=== PATIENT | male | born 1945 | race Caucasian/White ===

== ENCOUNTER 2018-12-07 18:02 | Emergency (ER) | payer MEDICARE, OTHER, SELFPAY ==
[2018-12-07 18:05] VITALS: BP 186/92; PULSE 88; RESP 16; TEMP 36.9; O2SAT 97
--- NOTE | 2018-12-07 18:15 | ED.GENADUL_ITS ---
Discharge Plan Disposition Patient Disposition: HOME Condition: Good Discharge Details Chief Complaint: RashLesion Clinical Impression: Tick bite Primary Care Provider: Edi Gutierrez ED Provider: Shekhar Flores Home Meds and New Rx's Prescriptions: No Action omeprazole 20 mg Capsule,Delayed Release(Dr/Ec) PO DAILY RF: 0 Discharge Instructions Instructions: Tick Bite (ED) Additional Instructions: You have been given the prophylactic dose for Lyme disease. If you notice any change in your rash, worsening of your rash, systemic symptoms of worsening aches or pains, fever chills headache and neck pain please return immediately. If you notice any worsening of your symptoms, or any new symptoms such as vomiting, diarrhea, fever, chills, shortness of breath, chest pain, numbness, weakness, or fainting , please return immediately to the emergency department for reevaluation. Please follow up with your primary care provider as soon as possible for reassessment and reevaluation. As always, it was a pleasure participating in your medical care today. Medical Decision Making This is a pleasant 73-year-old male who presents for evaluation of a tick bite on his left buttock. It occurred earlier today. He was able to remove it without any difficulty or problems. Local skin exam demonstrates evidence of a small amount of reaction, no clinical evidence of erythema migrans. No systemic symptoms to suggest Lyme. The tick is not engorged. On exam the tick is clearly an [place] dog tick. We discussed the risks and benefits of Lyme prophylaxis, and the patient is requesting treatment at this time. We will give 200 mg of doxycycline. Recommend close follow-up. I have extensively reviewed the treatment plan and discharge instructions with the patient. I have addressed all patient concerns at this time. The patient was made aware of what symptoms to monitor for that would warrant a return to the emergency department. Discussed the plan with the patient, they demonstrate verbal understanding and agreement with our assessment and plan at this time. HPI General Date/Time Provider Initiated Documentation: 12/07/18 18:06 . HPI Narrative: This is a pleasant 73-year-old male with no past medical history who presents for evaluation of tick bite. Earlier today he was bit on the left buttock by a tick. He was able to remove the tick including the head. The tick is still alive. He did notice a very tiny amount of redness around the initial bite, presented for further evaluation. He denies any red flags of fever chills arthralgias headache or neck pain. No other modifying Related Data Home Medications Medication Instructions Recorded Confirmed omeprazole mg PO DAILY 12/07/18 Allergies Allergy/AdvReac Type Severity Reaction Status Date / Time Pxdjnxj-Ycm-Iox Reductase AdvReac Mild altered Unverified 12/07/18 18:15 Inhibitor labs Penicillins AdvReac Unknown as an Unverified 12/07/18 18:14 infant General Stated Complaint: RashLesion ROBEL: 4 Review of Systems Review of Systems All systems reviewed & are unremarkable except as noted in HPI and below PFSH Social History Smoking/Tobacco Use Status: Former Tobacco Use Alcohol Intake: current Alcohol Intake frequency: a few times a month Drug use: Never Substance use type: does not use Do you feel safe at home: Yes Do you feel safe in your relationship?: Yes Exam Narrative Exam Narrative: 1.Const: Well-nourished, Well-developed, appearing stated age 2.Eyes: PERRL, no conjunctival injection, and symmetrical lids. 3.ENT: Atraumatic external nose and ears. Moist MM. Neck: Symmetric, trachea midline, No thyromegaly. 4.CVS: +S1/S2, No murmurs or gallops. Peripheral pulses 2+ and equal in all extremities. Brisk capillary refill in all extremities. 5.RESP: Unlabored respiratory effort. Clear to auscultation bilaterally. No wheezes rales or rhonchi 6.GI: Soft, Nontender/Nondistended, No hepatosplenomegaly. No guarding or rebound. 7.MSK: Normocephalic/Atraumatic, Extremities w/o deformity or ttp No cyanosis or clubbing, Normal movement of all extremities 8.Skin: Warm, Dry. Small amount of erythema on the posterior left buttocks, less than 1 cm in diameter. No evidence of erythema migrans. Does appear to be a local reaction to the bite. 9.Neuro: appliance assembler II-XII grossly intact. Sensation grossly intact, no focal neurologic deficits. 10.Psych: (AAO) x3. Appropriate mood and affect Course Vital Signs Temperature 36.9 C 12/07/18 18:05 Pulse 88 12/07/18 18:05 Respiratory Rate 16 12/07/18 18:05 Blood Pressure 186/92 H 12/07/18 18:05 Pulse Oximetry 97 12/07/18 18:05 Temperature 36.9 C 12/07/18 18:05 Temperature Source Skin 12/07/18 18:05 Pulse 88 12/07/18 18:05 Respiratory Rate 16 12/07/18 18:05 Blood Pressure 186/92 H 12/07/18 18:05 Blood Pressure Position Sitting 12/07/18 18:05 Pulse Oximetry 97 12/07/18 18:05 Oxygen Delivery Method Room Air 12/07/18 18:05 Oxygen Flow Rate 0 12/07/18 18:05
[2018-12-07] MEDS: Doxycycline Hyclate 100 MG CAP 200 MG PO (18:17)
== END 2018-12-07 18:33 | disposition home or self-care (01) ==
PROVIDERS: Emergency Provider Student in an Organized Health Care Education/Training Program
DX: S30.860A Insect bite (nonvenomous) of lower back and pelvis, initial encounter (principal); W57.XXXA Bitten or stung by nonvenomous insect and other nonvenomous arthropods, initial encounter
CPT/HCPCS: 99283

== ENCOUNTER 2019-03-09 15:58 | Emergency (ER) | payer MEDICARE, OTHER, SELFPAY ==
[2019-03-09] VITALS (50 sets, daily range): BP systolic 125–158; BP diastolic 59–97; PULSE 67–93; RESP 10–23; TEMP 36.4; O2SAT 83–99
--- NOTE | 2019-03-09 16:20 | DI.RAD_ITS ---
SYMPTOM/DIAGNOSIS: SOB PA AND LATERAL CHEST: The lungs are well expanded and free of infiltrate. There is no evidence of a pleural effusion or pneumothorax. The cardiac and mediastinal structures are intact. There are degenerative changes involving the spine. IMPRESSION: No evidence of acute cardiopulmonary disease.
--- NOTE | 2019-03-09 16:22 | W.ED.GENAD ---
Discharge Plan Disposition Patient Disposition: HOME Condition: Improving Discharge Details Chief Complaint: Chest Pain Clinical Impression: Acute dehydration Primary Care Provider: BrendaLocal ED Provider: Apolinar Grier Home Meds and New Rx's Prescriptions: No Action omeprazole 20 mg Capsule,Delayed Release(Dr/Ec) 20 mg PO DAILY RF: 0 Discharge Instructions Instructions: Dehydration (ED) Additional Instructions: Please continue to take your normally prescribed medications, stay well-hydrated, and rest over the next couple days. Return immediately to the emergency department for any new or worsening symptoms, return of chest discomfort, or any further concerns you have. Otherwise follow-up with your primary care provider for reassessment and further testing as needed. Referrals: Primary Care Provider [Outside] - 3 days (Please call your primary care office on Tuesday for arrangement of reassessment and further testing as needed) Medical Decision Making Patient presenting to the emergency department chief complaint of malaise chest pain and tightness. He states that he had been working outside all day long, not eating or drinking well, and his had showed up and he was going to show her the work he had been doing. They had smoked a small amount of marijuana when they got on the [address] to right around the property and he started having symptoms. called EMS due to patient looking clammy and ill. Patient was given IV fluids by EMS. Patient now states that chest pain and tightness has resolved but he still feels generalized malaise. Patient feels that he feels like he just got very high on the marijuana that caused him to feel ill. Patient does have history of GERD, hypertension, hyperlipidemia, and borderline diabetes. Patient is unaware of his meds except for daily omeprazole. Physical exam is unremarkable, plan to do EKG labs and chest x-ray. Review of labs show a nondiagnostic CBC, CMP with slightly low potassium, elevated anion gap, elevated BUN, glucose is appropriate and slightly low calcium. Urinalysis is unremarkable and negative initial troponin. Plan to give oral potassium. Second troponin was reviewed and also negative. Patient reassessed and states complete resolution of symptoms and that he feels significantly better after the 2 L of IV fluids. Patient does have moderate heart score so did discuss with patient consideration of admission. Patient refused admission at this time and states he will call his primary care office early next week or return for worsening symptoms. I do feel given that patient had been doing a lot of work, has some elevated BUN creatinine and anion gap, that symptoms may be secondary to some dehydration and contributing factor of marijuana usage. Very close return precautions were discussed with both patient and family. After discussion of diagnosis and plan of care patient and have no further needs, questions, or concerns and states clear understanding to return to the emergency department for any worsening symptoms. ECG Data Interpretation: 1605 EKG reviewed with attending physician Dr. Vandana Lance and shows sinus rhythm, rate of 78, mild ST depression in 2 3 and aVF, slight T wave inversion noted in lead III no STEMI, 1950 EKG reviewed with attending physician Dr. Flores. Shows sinus rhythm, rate of 73, there is subtle T wave inversion noted in lead III, no STEMI. HPI General Mode of arrival: EMS. Date/Time Provider Initiated Documentation: 03/09/19 15:59. Limitations to Documentation: no limitations. Information obtained by: patient, family and RN notes reviewed. History of Present Illness 73 year old M presents to the emergency department with the chief complaint of Chest pain/tightness, malaise, Quality is described as other (Pain now resolved), and is localized to the chest. Patient started experiencing this hour(s) (1) and it has been now resolved (Except for malaise). Patient notes no other symptoms.. Patient did receive the following treatments prior to arrival, none Related Data Home Medications Medication Instructions Recorded Confirmed omeprazole 20 mg PO DAILY 12/07/18 03/09/19 Allergies Allergy/AdvReac Type Severity Reaction Status Date / Time [id number] Reductase AdvReac Mild altered Unverified 03/09/19 16:04 Inhibitor labs Penicillins AdvReac Unknown as an Unverified 03/09/19 16:04 infant General Stated Complaint: Chest Pain ROBEL: 2 Review of Systems Constitutional Constitutional: Denies chills, Denies fever(s) and Denies malaise Cardiovascular Cardiovascular: Reports as per HPI, Reports chest pain, Denies chest pain with activity, Denies syncope, Denies irregular heart rhythm, Denies palpitations and Denies dyspnea Respiratory Respiratory: Denies cough, Denies hemoptysis and Denies dyspnea Gastrointestinal Gastrointestinal: Denies abdominal pain, Denies nausea and Denies vomiting Neurologic Neurologic: Denies syncope Endocrine Endocrine: Denies palpitations [facility] Medical History (Updated 03/09/19 @ 20:36 by Apolinar Grier NP) GERD (gastroesophageal reflux disease) (Chronic) Hyperlipidemia (Acute) Social History Smoking/Tobacco Use Status: Current-Occasional Tobacco Type: cigars Alcohol Intake: current Alcohol Intake frequency: a few times a month Drug use: Occasionally Substance use type: marijuana Do you feel safe at home: Yes Do you feel safe in your relationship?: Yes Exam Const General: cooperative, healthy appearing, comfortable, no acute distress, not diaphoretic and not ill appearing Nutritional Appearance: average body habitus Orientation: alert, awake and oriented x3 Limitations: mental status not altered Neck Neck: normal visual inspection, full ROM, trachea midline, supple and no anterior neck swelling Thyroid: thyroid normal Carotids: normal carotid upstroke and no bruits Chest Chest: normal inspection of the chest Resp Effort & Inspection: normal respiratory effort and able to speak in complete sentences Auscultation: clear to auscultation bilaterally Cardio Jugular venous pressure: no JVD Palpation: normal PMI Rate: regular rate Rhythm: regular rhythm Heart Sounds: S1 normal, S2 normal, no click, no gallops, no murmurs and no rubs Bruits: no abdominal aortic bruits and no carotid bruits Pulses: radial pulses present bilaterally 2+ GI Inspection: normal to inspection Palpation: soft, no aortic enlargement, no pulsatile masses and nontender Auscultation: normal bowel sounds Skin General skin exam: no rashes or lesions noted Neuro General: alert, awake, oriented x3, tone normal and moves all extremities Course Vital Signs Vital signs: Vital Signs Temperature 36.4 C L 03/09/19 15:58 Pulse 84 03/09/19 15:58 Respiratory Rate 12 03/09/19 15:58 Blood Pressure 144/97 H 03/09/19 15:58 Pulse Oximetry 96 03/09/19 15:58 Temperature 36.4 C L 03/09/19 15:58 Temperature Source Skin 03/09/19 15:58 Pulse 84 03/09/19 15:58 Respiratory Rate 12 03/09/19 15:58 Respiratory Effort Non-Labored 03/09/19 16:04 Respiratory Depth Normal 03/09/19 16:04 Respiratory Pattern Normal 03/09/19 16:04 Blood Pressure 144/97 H 03/09/19 15:58 Pulse Oximetry 96 03/09/19 15:58 Oxygen Delivery Method Room Air 03/09/19 15:58 Oxygen Flow Rate 0 03/09/19 15:58 Pain Level 1 03/09/19 16:04
[2019-03-09 16:44] LABS: Abs Immature Grans 0.02 k/cumm (0.0-0.09); Absolute Basophil Count 0.02 k/cumm (0.0-0.2); Absolute Eosinophil Count 0.12 k/cumm (0.0-0.7); Absolute Lymphocyte Count 3.81 k/cumm (1.2-3.4); Absolute Monocyte Count 0.74 k/cumm (0.11-0.7); Absolute Neutrophil Count 4.32 k/cumm (1.2-6.7); Basophils % 0.2; Eosinophils % 1.3; HGB 15.6 g/dL (13.5-17.5); Immature Grans % 0.2; Lymphocytes % 42.2; Mean Corp. HGB Concentration 33.2 g/dL (32.0-36.0); Mean Corpuscular Hemoglobin 29.9 pg (27.0-33.0); Mean Platelet Volume 10.4 fL (8.0-11.0); Monocytes % 8.2; Neutrophils % 47.9; Platelet Count 243 x1000/uL (130-400); RBC 5.22 m/cumm (4.50-6.00); RBC Distribution Width 14.6 % (11.8-14.1); White Blood Cell Count 9.03 k/cumm (4.4-10.8)
[2019-03-09 16:57] LABS: INR 1.1 (0.9-1.1); PTT Activated 22.5 sec (21.0-31.4); Prothrombin Time 10.9 sec (9.3-11.0)
[2019-03-09 16:59] LABS: ALT 40 U/L (16-63); AST 24 U/L (15-37); Albumin 3.5 g/dL (3.4-5.0); Alkaline Phosphatase 57 U/L (46-116); Anion Gap 12.2 mmol/L (3-11); BUN 19 mg/dL (7-18); Bilirubin, Total 0.4 mg/dL (0.2-1.0); CO2 24.8 mmol/L (21.0-32.0); CREATININE 1.26 mg/dL (0.70-1.30); Calcium 8.1 mg/dL (8.5-10.1); Chloride 107 mmol/L (98-107); Estimated GFR 56.26 (mL/min/1.73m2); Glucose 160 mg/dL (70-100); Potassium 3.3 mmol/L (3.5-5.1); Sodium 144 mmol/L (136-145); Total Protein 6.5 g/dL (6.4-8.2)
[2019-03-09 17:00] LABS: Troponin I < 0.05 ng/mL (0.00-0.06)
--- NOTE | 2019-03-09 17:00 | NUR.NOTE ---
Nursing Note:Pt resting in stretcher,no signs of distress pt states that he feels, much better. denies pain. VSS
[2019-03-09 17:02] LABS: Bilirubin Negative (Negative); Blood Negative (Negative); Clarity Clear (Clear); Glucose Negative (Negative); Ketones Negative (Negative); Leukocyte Esterase Negative (Negative); Nitrite Negative (Negative); Urobilinogen 0.2 EU/dL (Up TO 0.2)
[2019-03-09] MEDS: Normal Saline 1,000 ML 1000 ML IV (17:23)
[2019-03-09] MEDS: Potassium Chloride 20 MEQ TABCR PO (17:23)
--- NOTE | 2019-03-09 17:29 | DI.VRAD_ITS ---
EXAM: XR Chest, 2 Views EXAM DATE/TIME: 03/09/2019 4:22 PM CLINICAL HISTORY: 73 years old, male; Shortness of breath TECHNIQUE: Imaging protocol: XR of the chest Views: 2 views. COMPARISON: No relevant prior studies available. FINDINGS: Lungs: Unremarkable. No consolidation. Pleural space: Unremarkable. No pleural effusion. No pneumothorax. Heart/Mediastinum: Unremarkable. No cardiomegaly. Bones/joints: Degenerative changes in the spine. IMPRESSION: No acute finding. Dictated and Authenticated by: Nataliya Costa MD. Ordering:MERA Jiang MD
[2019-03-09 20:16] LABS: Troponin I < 0.05 ng/mL (0.00-0.06)
--- NOTE | 2019-03-09 20:51 | NUR.NOTE ---
Nursing Note: pt alert/oriented/ambulatory. discharged to home with spouse. instructions reviewed, emphasis on the importance of proper hydration and follow up care. understanding verbalized. VSS IV REMOVED.
== END 2019-03-09 20:55 | disposition home or self-care (01) ==
PROVIDERS: Emergency Provider Nurse Practitioner Family
DX: E86.0 Dehydration (principal); R53.81 Other malaise; R07.89 Other chest pain; I10 Essential (primary) hypertension; E87.6 Hypokalemia; F12.90 Cannabis use, unspecified, uncomplicated
CPT/HCPCS: 36415; 80053; 93005; 96360; 99285; 71046; 81003; 83735; 84484; 85025; 85610; 85730; 93010; 99284

== ENCOUNTER 2019-03-15 11:56 | Emergency (ER) | payer MEDICARE, OTHER, SELFPAY ==
[2019-03-15 12:00] VITALS: BP 166/91; PULSE 94; RESP 16; TEMP 36.7; O2SAT 99
--- NOTE | 2019-03-15 12:25 | ED.GENADUL_ITS ---
Discharge Plan Disposition Patient Disposition: HOME Condition: Improving Discharge Details Chief Complaint: Dizzy/Sync Clinical Impression: GERD (gastroesophageal reflux disease), Hyperlipidemia, Lightheaded Primary Care Provider: Brenda,Local ED Provider: Brett Khan Home Meds and New Rx's Prescriptions: Continued omeprazole 20 mg Capsule,Delayed Release(Dr/Ec) 20 mg PO DAILY RF: 0 Discharge Instructions Additional Instructions: Continue regular medications including omeprazole. Follow-up with your regular doctor on Tuesday as planned. Return if develop chest pain, difficulty breathing, recurrent lightheadedness or any other acute concerns. Medical Decision Making 73-year-old male presents from home complaining of recurrent sensation of lightheadedness and fogginess, similar to recent ED visit which she had negative cardiac troponins, received parenteral fluids and was diagnosed with dehydration. States today he had recurrent symptoms while raking in his yard, and seems to improve with rest. Initially patient notes his blood pressure 166/91, corrected to 138/80. Also initially had a pulse in the 90s, corrected to 65. Vital signs otherwise unremarkable. Patient IV access established, referred for EKG and laboratory testing, given small bolus of fluid. CBC and chemistries are within normal limits. Urine specific gravity 1.0. Troponin negative. Repeat troponin obtained and negative. Patient improved. Discussed with him that I feel outpatient stress testing will help to complete his risk stratification, but he stated that as this is is a seasonal residence and he has pre-standing follow-up on Tuesday at home in [place] that he will defer to his home primary care physician. We discussed home management as well as strict return precautions for the development of chest pain, develop breathing or any other acute concern. ECG Data Attestation: I personally reviewed and interpreted this ECG (s) as follows: Interpretation: Normal sinus rhythm with a rate of 94, QRS is narrow, there is no ST segment elevation present. HPI General Mode of arrival: ambulatory . Date/Time Provider Initiated Documentation: 03/15/19 12:07 . Limitations to Documentation: no limitations . Information obtained by: patient . History of Present Illness 73 year old M presents to the emergency department with the chief complaint of [employer] foggy and mild lightheadedness while doing yard work today, described as similar to prior episodes, Quality is described as dull, and is localized to the head. Patient started experiencing this hour(s) and it has been now resolved. No relieving factors improve symptom(s), Other factors that worsen symptoms (Doing yard work) . Patient notes denies chest pain and syncope. Patient did receive the following treatments prior to arrival, none Related Data Home Medications Medication Instructions Recorded Confirmed omeprazole 20 mg PO DAILY 12/07/18 03/15/19 Allergies Allergy/AdvReac Type Severity Reaction Status Date / Time Pzoghri-Nkk-Ssv Reductase AdvReac Mild altered Unverified 03/15/19 12:04 Inhibitor labs Penicillins AdvReac Unknown as an Unverified 03/15/19 12:04 General Stated Complaint: Dizzy/Sync ROBEL: 3 Review of Systems Review of Systems Narrative: No chest pain, syncope, headache, shortness of breath. Patient now feels improved. 8 systems reviewed and otherwise negative [facility] Medical History GERD (gastroesophageal reflux disease) (Chronic) Hyperlipidemia (Acute) Social History Smoking/Tobacco Use Status: Current-Occasional Tobacco Type: cigars Alcohol Intake: current Alcohol Intake frequency: a few times a month Drug use: Occasionally Substance use type: marijuana Do you feel safe at home: Yes Do you feel safe in your relationship?: Yes Exam Narrative Exam Narrative: GEN: awake, alert, oriented 3. Pleasant, well groomed, interactive. HEAD: Normocephalic, atraumatic ENT: Mucous membranes moist, oropharynx unremarkable, External ear exam unremarkable EYES: PERRL, EOMI NECK: Full ROM, no PILLO, no menigismus CHEST/RESP: Nontender, clear to auscultation bilateral, no wheeze/rhonchi/rales CARDIOVASCULAR: RRR, no murmur, rub moncho. 2+ Rad pulse bilateral ABDOMEN: Soft, nontender, no mass. +Bowel sounds EXT: Full ROM, no edema, no rash Neuro: Grossly normal neurologic exam, conversant, interactive. Psych: Speech fluent, thoughts congruent, affect normal Course Vital Signs Vital signs: Vital Signs Temperature 36.7 C 03/15/19 12:00 Pulse 94 H 03/15/19 12:00 Respiratory Rate 16 03/15/19 12:00 Blood Pressure 166/91 H 03/15/19 12:00 Pulse Oximetry 99 03/15/19 12:00 Temperature 36.7 C 03/15/19 12:00 Temperature Source Skin 03/15/19 12:00 Pulse 94 H 03/15/19 12:00 Respiratory Rate 16 03/15/19 12:00 Blood Pressure 166/91 H 03/15/19 12:00 Pulse Oximetry 99 03/15/19 12:00 Oxygen Delivery Method Room Air 03/15/19 12:00 Oxygen Flow Rate 0 03/15/19 12:00 Pain Level 1 03/15/19 12:00
[2019-03-15 12:27] LABS: Bilirubin Negative (Negative); Blood Negative (Negative); Clarity Clear (Clear); Glucose Negative (Negative); Ketones Negative (Negative); Leukocyte Esterase Negative (Negative); Nitrite Negative (Negative); Specific Gravity <= 1.005 (1.005-1.025); Urobilinogen 0.2 EU/dL (Up TO 0.2)
[2019-03-15] MEDS: Normal Saline 1,000 ML 1000 ML IV (12:35)
[2019-03-15 12:39] VITALS: RESP 16
[2019-03-15 12:56] LABS: Abs Immature Grans 0.02 k/cumm (0.0-0.09); Absolute Basophil Count 0.02 k/cumm (0.0-0.2); Absolute Eosinophil Count 0.09 k/cumm (0.0-0.7); Absolute Lymphocyte Count 1.43 k/cumm (1.2-3.4); Absolute Monocyte Count 0.46 k/cumm (0.11-0.7); Basophils % 0.3; Eosinophils % 1.6; HCT 48.9 % (40.0-50.0); HGB 16.3 g/dL (13.5-17.5); Immature Grans % 0.3; Mean Corp. HGB Concentration 33.3 g/dL (32.0-36.0); Mean Corpuscular Hemoglobin 29.5 pg (27.0-33.0); Mean Corpuscular Volume 88.6 fL (80-95); Mean Platelet Volume 9.9 fL (8.0-11.0); Neutrophils % 64.8; Platelet Count 228 x1000/uL (130-400); RBC 5.52 m/cumm (4.50-6.00); RBC Distribution Width 14.3 % (11.8-14.1); White Blood Cell Count 5.72 k/cumm (4.4-10.8)
[2019-03-15 13:11] LABS: ALT 33 U/L (16-63); AST 18 U/L (15-37); Albumin 3.5 g/dL (3.4-5.0); Alkaline Phosphatase 69 U/L (46-116); Anion Gap 8.8 mmol/L (3-11); BUN 16 mg/dL (7-18); Bilirubin, Total 0.3 mg/dL (0.2-1.0); CO2 26.2 mmol/L (21.0-32.0); CREATININE 1.01 mg/dL (0.70-1.30); Calcium 8.9 mg/dL (8.5-10.1); Chloride 107 mmol/L (98-107); Glucose 107 mg/dL (70-100); Magnesium 2.1 mg/dL (1.8-2.4); Potassium 4.4 mmol/L (3.5-5.1); Sodium 142 mmol/L (136-145); Total Protein 6.8 g/dL (6.4-8.2)
[2019-03-15 13:24] LABS: Troponin I < 0.05 ng/mL (0.00-0.06)
[2019-03-15 14:50] VITALS: BP 138/80; PULSE 65; RESP 14; TEMP 36.7; O2SAT 96
[2019-03-15 16:16] LABS: Troponin I < 0.05 ng/mL (0.00-0.06)
[2019-03-15 16:35] VITALS: BP 143/96; PULSE 73; RESP 16; TEMP 37; O2SAT 96
== END 2019-03-15 16:37 | disposition home or self-care (01) ==
PROVIDERS: Emergency Provider Emergency Medicine
DX: K21.9 Gastro-esophageal reflux disease without esophagitis (principal); E78.5 Hyperlipidemia, unspecified; R42 Dizziness and giddiness
CPT/HCPCS: 36415; 80053; 93005; 96360; 96361; 99284; 81003; 83735; 84484; 85025; 93010

== ENCOUNTER 2020-11-21 14:44 | Emergency (ER) | payer MEDICARE, OTHER, SELFPAY ==
[2020-11-21 14:46] VITALS: BP 154/76; PULSE 77; RESP 18; TEMP 36.8; O2SAT 100
--- NOTE | 2020-11-21 15:00 | DI.RAD_ITS ---
Exam(s) XR FOREARM LT EXAM: XR FOREARM LT CLINICAL HISTORY: Trauma, R/O Fracture TECHNIQUE: COMPARISON: No exams were available for comparison FINDINGS: Two views were obtained. There is no evidence of acute forearm fracture. IMPRESSION: RADIATION DOSE DELIVERED: Total DLP
--- NOTE | 2020-11-21 15:04 | W.ED.GENAD ---
Discharge Plan Disposition Patient Disposition: HOME Condition: Stable Discharge Details Clinical Impression: Fall down stairs, Laceration of head [facility] Radha Saldana Home Meds and New Rx's Prescriptions: No Action ezetimibe 10 mg Tablet 10 mg PO DAILY RF: 0 omeprazole 20 mg Capsule,Delayed Release(Dr/Ec) 20 mg PO DAILY RF: 0 citalopram 10 mg Tablet 10 mg PO DAILY RF: 0 losartan 25 mg Tablet 25 mg PO DAILY RF: 0 finasteride 5 mg Tablet 5 mg PO DAILY RF: 0 Discharge Instructions Instructions: Laceration (ED), Head Injury (ED), Staple Care (ED) Additional Instructions: Follow up with primary care provider in 3-5 days. Return to ED sooner if any worsening or concerns. Increase oral fluids. Please take Tylenol or Ibuprofen with food every 4-6 hours as needed for pain and swelling. Today you had a head CT and neck CT which showed negative for mass hemorrhage or any acute injury. You are given a tetanus shot. X-rays of your left forearm are within normal limits. Please return to the ED for any worsening headache not relieved by Tylenol or ibuprofen, vomiting, confusion, chest pain abdominal pain or any concerns. Try not to drink alcohol for the next 24 to 48 hours as this can not symptoms of a serious head injury. Have keren removed in 5 to 7 days. Discharge Data Discharge Date/Time-TO BE ENTERED AT DEPARTURE: 11/21/20 17:01 Medical Decision Making 74-year-old male presents to the ER via EMS with chief complaint of fall down the stairs, he lost his balance fell backwards down approximately 13 steps. No loss of consciousness he is alert and oriented x4 upon arrival. He is placed in a c-collar. He has a laceration noted to his left scalp. He does have some skin tears noted to his left forearm right anterior tib-fib. He has full range of motion noted to all 4 extremities, pelvis is stable denies any chest pain no abdominal pain no midline T or L-spine tenderness with palpation no crepitus no step-off. No ecchymosis noted to his back chest or abdomen. He has a past medical history of hyperlipidemia, hypertension, GERD. CT head and C-spine are negative for any acute abnormality no mass no hemorrhage no fractures. Patient is ambulatory in department c-collar removed. Up to the bathroom. Patient refused right tib-fib x-ray. Left forearm x-rays negative. Laceration noted to left parietal scalp proximally 3 cm and jagged in length bleeding is controlled at this point. Wound was extensively irrigated, cleaned with chlorhexidine and sterile normal saline. 2 keren placed as noted in procedure note above. Discuss strict return instructions including red flags for head injury, discussed to return for any abdominal pain chest pain or any concerns. This text was generated using [employer] system, please disregard any oddities of phrase or misspellings. HPI General Mode of arrival: EMS. Date/Time Provider Initiated Documentation: 11/21/20 14:54. Limitations to Documentation: no limitations. Information obtained by: patient and EMS. HPI Narrative: 74-year-old male presents to the ER via EMS with chief complaint of fall down the stairs, he lost his balance fell backwards down approximately 13 steps. No loss of consciousness he is alert and oriented x4 upon arrival. He is placed in a c-collar. He has a laceration noted to his left scalp. He does have some skin tears noted to his left forearm right anterior tib-fib. He has full range of motion noted to all 4 extremities, pelvis is stable denies any chest pain no abdominal pain no midline T or L-spine tenderness with palpation no crepitus no step-off. No ecchymosis noted to his back chest or abdomen. He has a past medical history of hyperlipidemia, hypertension, GERD. Related Data Home Medications Medication Instructions Recorded Confirmed omeprazole 20 mg PO DAILY 12/07/18 11/21/20 ezetimibe 10 mg PO DAILY 03/15/19 11/21/20 citalopram 10 mg PO DAILY 11/21/20 finasteride 5 mg PO DAILY 11/21/20 11/21/20 losartan 25 mg PO DAILY 11/21/20 Allergies Allergy/AdvReac Type Severity Reaction Status Date / Time Rpvpyki-Ofj-Avk Reductase AdvReac Mild altered Unverified 11/21/20 14:50 Inhibitor labs Penicillins AdvReac Unknown as an Unverified 11/21/20 14:50 General Stated Complaint: Trauma ROBEL: 3 Review of Systems Narrative: Constitutional: Negative for weight loss, alert and oriented, well groomed, normal body habitus, appears comfortable. HEENT: Denies blurry vision, nasal discharge, sore throat, trouble swallowing. Chest: Denies chest pain, palpitations, irregular rhythm, hypertension. Respiratory: Denies Shortness of breath, cough, hemoptysis. GI: Denies abdominal pain, nausea, vomiting, diarrhea, constipation. : Denies dysuria, hematuria, flank pain, rectal bleeding. Musculoskeletal: Pelvis is stable no obvious deformity or ecchymosis noted, does have some skin tears noted on forearms and the right anterior tib-fib. Superficial. Moving all 4 extremities. Neuro: Denies dizziness, blurry vision, weakness, syncope, or facial numbness. Hematologic: Denies easy bruising, intolerance to heat or cold, hair loss. [facility] Medical History (Updated 11/21/20 @ 16:53 by Radha Saldana) GERD (gastroesophageal reflux disease) Hyperlipidemia Social History Smoking/Tobacco Use Status: Current-Occasional Tobacco Type: cigars Smoking risk assessment performed?: Yes Alcohol Intake: current Alcohol Intake frequency: a few times a month Drug use: Occasionally Substance use type: marijuana Do you feel safe at home: Yes Do you feel safe in your relationship?: Yes Exam Narrative Exam Narrative: General: Well Developed, Awake and Alert, conversant. Skin: Warm and Dry HEENT: Laceration noted to his left parietal scalp, bleeding controlled with pressure Head: No palpable deformities, Normocephalic Eyes: Pupils PERRLA, EOM's intact. No periorbital eccymosis or step off Ears: Canal patent. Tympanic membranes are clear . No taylor's sign, no hemptympanum. Nose/Face: Atraumatic. Facial bones nontender to palpation and stable with manipulation. Mouth/Throat: No intraoral trauma. Teeth and mandible are intact. Neck: No midline tenderness, no step off, no deformity to palpation of C-spine. Trachea midline. Chest: No surface trauma. Nontender without crepitus or deformity. Lungs clear to ausculatation bilaterally. Heart: RRR, no rubs, murmurs or gallop. Abdomen: No abrasions, ecchymosis, or surface trauma. Nondistended. Nontender to palpation no guarding, rebound, or rigidity. Pelvis: Nontender to palpation and stable to compression. Femoral pulses strong and equal Extremities skin tear noted to left forearm left hand and right anterior tib-fib. Appears superficial. Sensation intact. Peripheral pulses intact and equal. Neuro: ANO x4, GCS 15, cranial nerves II through XII intact. Motor and sensory exam nonfocal. Reflexes are symmetric. Course Vital Signs Vital signs: Vital Signs Temperature 36.8 C 11/21/20 14:46 Pulse 77 11/21/20 14:46 Respiratory Rate 18 11/21/20 14:46 Blood Pressure 154/76 H 11/21/20 14:46 Pulse Oximetry 100 11/21/20 14:46 Temperature 36.8 C 11/21/20 14:46 Temperature Source Skin 11/21/20 14:46 Pulse 77 11/21/20 14:46 Respiratory Rate 18 11/21/20 14:46 Respiratory Effort Non-Labored 11/21/20 14:50 Blood Pressure 154/76 H 11/21/20 14:46 Blood Pressure Position Sitting 11/21/20 14:46 Pulse Oximetry 100 11/21/20 14:46 Oxygen Delivery Method Room Air 11/21/20 14:46 Oxygen Flow Rate 0 11/21/20 14:46 Pain Level 3 11/21/20 14:46 Procedures Laceration Laceration 1: Site: scalp Side (If applicable): left Size (cm): 3 Description: irregular and contaminated Depth: simple, single layer Local Anesthetic: Lidocaine 1% and with Epi Amount of anesthesia used (mL): 3 Pre-repair: wound explored and irrigated extensively Size (cm): other (2 keren)
--- NOTE | 2020-11-21 15:11 | DI.CT_ITS ---
Exam(s) CT HEAD CERVICAL SPINE WO EXAM: CT HEAD CERVICAL SPINE WO COMPARISON: No exams were available for comparison FINDINGS: CT examination of the cervical spine was performed without contrast administration. There are severe degenerative changes of the cervical spine. There is multilevel disc degeneration s paring C2-3. There is incidental posterior ligament calcification seen at the C5-6 level. There is no evidence of acute cervical spine fracture or dislocation. Intervertebral disc spaces are well maintained. Tracheolaryngeal structures appear intact. No cervical mass or adenopathy. Noncontrast cranial CT was performed. There is moderate generalized cerebral atrophy. No evidence of acute intracranial hemorrhage, mass effect, or midline shift. No calvarial fracture. The orbital and temporal bone structures appear intact. Visualized mastoid air cells and paranasal sinuses appear clear. IMPRESSION: No evidence of acute cervical spine injury. No evidence of acute intracranial injury. RADIATION DOSE DELIVERED: Total DLP Total DLP DATA REPOSITORY: All CT scans at this facility are submitted to the National Radiology Data Registry (NRDR) Dose Index Registry (DIR) with the [employer] (ACR). RADIATION OPTIMIZATION: All CT scans at this facility use at least one of these dose optimization te chniques: automated exposure control; mA and/or kV adjustment per patient size (includes targeted exa ms where dose is matched to clinical indication); or iterative reconstruction.
[2020-11-21] MEDS: Lidocaine/Epinephri/Tetracaine Topical Gel 3 ML TP (16:04)
[2020-11-21] MEDS: Tetanus & Diphtheria Tox,ADULT 0.5 ML VIAL IM (16:04)
[2020-11-21 16:35] VITALS: BP 144/72; PULSE 81; RESP 15; TEMP 36.7; O2SAT 98
--- NOTE | 2020-11-21 16:58 | NUR.NOTE ---
Nursing Note: BACITRACIN, GAUZE, AND COBAN TO SKIN TEARS. RIGHT LOWER LEG, LEFT POST ARM,AND LEFT HAND.
== END 2020-11-21 17:01 | disposition home or self-care (01) ==
PROVIDERS: Emergency Provider Registered Nurse Emergency
DX: S01.01XA Laceration without foreign body of scalp, initial encounter (principal); S51.812A Laceration without foreign body of left forearm, initial encounter; S81.811A Laceration without foreign body, right lower leg, initial encounter; W10.8XXA Fall (on) (from) other stairs and steps, initial encounter
CPT/HCPCS: 12002; 90471; 99283; 70450; 72125; 73090; 99282

== ENCOUNTER 2020-11-27 15:56 | Emergency (ER) | payer MEDICARE, OTHER, SELFPAY ==
[2020-11-27 16:06] VITALS: BP 149/74; PULSE 69; RESP 16; TEMP 36.7; O2SAT 96
--- NOTE | 2020-11-27 16:21 | ED.GENADUL_ITS ---
Discharge Plan Disposition Patient Disposition: HOME Condition: Stable Discharge Details Clinical Impression: Encounter for removal of erma Primary Care Provider: [facility] Provider: Alberto Evans Home Meds and New Rx's Prescriptions: New ibuprofen 800 mg tablet 800 mg PO TID PRNQty: 14 RF: 0 Continued ezetimibe 10 mg Tablet 10 mg PO DAILY RF: 0 omeprazole 20 mg Capsule,Delayed Release(Dr/Ec) 20 mg PO DAILY RF: 0 citalopram 10 mg Tablet 10 mg PO DAILY RF: 0 losartan 25 mg Tablet 25 mg PO DAILY RF: 0 finasteride 5 mg Tablet 5 mg PO DAILY RF: 0 Discharge Instructions Additional Instructions: Erma removed without difficulty. I have given you a short prescription of the ibuprofen that you requested. Please watch for new or worsening symptoms and return to the ER for any concerns. Discharge Data Discharge Date/Time-TO BE ENTERED AT DEPARTURE: 11/27/20 16:49 Medical Decision Making Patient presents for staple removal. He denies pain at the site of the sutures, any signs of infection, or any other complaints. Is requesting a refill of his 800 mg ibuprofen. He appears well, nontoxic, neurologically intact, no signs of secondary infection. Erma removed without difficulty. Patient tolerated well Patient has no additional questions or concerns at this time. Medical Records Medical records reviewed: Yes I reviewed the patient's medical records. HPI General Mode of arrival: ambulatory . Date/Time Provider Initiated Documentation: 11/27/20 16:09 . Limitations to Documentation: no limitations . Information obtained by: patient and family . HPI Narrative: This is a 75-year-old gentleman who presents for staple removal. Patient was seen in the ER on 11-21 after a fall down the stairs. Work-up at that time was negative and he was subsequently discharged. He has been taking Motrin for his aches and pains, he had a previous prescription from his dentist and is now out, requesting new prescription now. He denies any headache, visual changes, neck pain. He denies any redness or pain around the stapled laceration on the left side of his scalp. He has no additional questions or concerns. Related Data Home Medications Medication Instructions Recorded Confirmed omeprazole 20 mg PO DAILY 12/07/18 11/21/20 ezetimibe 10 mg PO DAILY 03/15/19 11/21/20 citalopram 10 mg PO DAILY 11/21/20 finasteride 5 mg PO DAILY 11/21/20 11/21/20 losartan 25 mg PO DAILY 11/21/20 ibuprofen 800 mg PO TID PRN #14 tab 11/27/20 Previous Rx's Medication Instructions Recorded ibuprofen 800 mg PO TID PRN #14 tab 11/27/20 Allergies Allergy/AdvReac Type Severity Reaction Status Date / Time Ighvkro-Gfe-Smb Reductase AdvReac Mild altered Unverified 11/21/20 14:50 Inhibitor labs Penicillins AdvReac Unknown as an Unverified 11/21/20 14:50 General Stated Complaint: SutureRem ROBEL: 5 Review of Systems Constitutional Constitutional: Denies fever(s) and Denies headache(s) ENT Ears, Nose, Mouth, and Throat: Denies headache(s) Musculoskeletal Musculoskeletal: Denies numbness and Denies tingling Integumentary/Breasts Skin/Breast: Denies erythema and Denies rash Neurologic Neurologic: Denies headache(s) and Denies numbness PFSH Medical History GERD (gastroesophageal reflux disease) Hyperlipidemia Social History Smoking/Tobacco Use Status: Current-Occasional Tobacco Type: cigars Smoking risk assessment performed?: Yes Alcohol Intake: current Alcohol Intake frequency: a few times a month Drug use: Occasionally Substance use type: marijuana Do you feel safe at home: Yes Do you feel safe in your relationship?: Yes Exam Const General: cooperative, healthy appearing, comfortable and no acute distress Orientation: alert, awake and oriented x3 [facility] Head: no palpable skull fracture, normocephalic and atraumatic Head images: 1. Well approximated laceration with 2 sutures. No warmth, erythema, drainage, tenderness. No signs of infection. Face and sinus: normal facial exam Mouth: moist mucous membranes Eyes General: appearance normal, both eyes and all related structures Conjunctivae: conjunctivae normal Neck Neck: normal visual inspection, full ROM, trachea midline and supple Resp Effort & Inspection: normal respiratory effort and able to speak in complete sentences Cardio Rate: regular rate Rhythm: regular rhythm Skin General skin exam: no rashes or lesions noted Neuro General: patient alert, patient awake, patient oriented x3, moves all extremities and no focal motor deficits Cognition: normal cognition Speech: speech normal Gait: normal gait Motor: muscle tone normal throughout Sensory Exam: no sensory deficits noted Psych Appearance: grossly normal Mental Status: mental status grossly normal Course Vital Signs Vital signs: Vital Signs Temperature 36.7 C 11/27/20 16:06 Pulse 69 11/27/20 16:06 Respiratory Rate 16 11/27/20 16:06 Blood Pressure 149/74 H 11/27/20 16:06 Pulse Oximetry 96 11/27/20 16:06 Temperature 36.7 C 11/27/20 16:06 Temperature Source Temporal Artery Scan 11/27/20 16:06 Pulse 69 11/27/20 16:06 Respiratory Rate 16 11/27/20 16:06 Blood Pressure 149/74 H 11/27/20 16:06 Blood Pressure Position Supine 11/27/20 16:06 Pulse Oximetry 96 11/27/20 16:06 Oxygen Delivery Method Room Air 11/27/20 16:06 Oxygen Flow Rate 0 11/27/20 16:06 Procedures Other Description: 2 erma removed without difficulty.
== END 2020-11-27 16:49 | disposition home or self-care (01) ==
PROVIDERS: Emergency Provider Physician Assistant
DX: Z48.02 Encounter for removal of sutures (principal); S01.91XD Laceration without foreign body of unspecified part of head, subsequent encounter; W10.8XXD Fall (on) (from) other stairs and steps, subsequent encounter

== ENCOUNTER 2022-02-01 09:03 | Emergency (ER) | payer MEDICARE, OTHER, SELFPAY ==
[2022-02-01 09:08] VITALS: BP 176/101; PULSE 75; RESP 18; TEMP 36.5; O2SAT 98
--- NOTE | 2022-02-01 09:35 | W.ED.GENAD ---
Discharge Plan Disposition Patient Disposition: HOME Condition: Improving Discharge Details Chief Complaint: Urinary Clinical Impression: Acute UTI, Kidney cysts, Pulmonary nodule Primary [facility] Provider: [facility] Provider: Everardo Mcwilliams Home Meds and New Rx's Prescriptions: No Action ezetimibe 10 mg Tablet 10 mg PO DAILY ibuprofen 800 mg tablet 800 mg PO TID PRNQty: 14 0RF omeprazole 20 mg Capsule,Delayed Release(Dr/Ec) 20 mg PO DAILY Rx Instructions: unsure of dose citalopram 10 mg Tablet 10 mg PO DAILY losartan 25 mg Tablet 25 mg PO DAILY finasteride 5 mg Tablet 5 mg PO DAILY Discharge Instructions Instructions: Urinary Tract Infection in Men (ED) Additional Instructions: Please follow-up with your urologist. Please return to the emergency department he has any worsening symptoms. Medical Decision Making 76-year-old male history of recurrent frequent UTIs presents with dysuria urinary frequency and flank pain. Denies history of kidney stones. Hemodynamically stable afebrile nontoxic no nausea or vomiting no sweats or chills. Consider recurrent UTI versus kidney stone versus early pyelonephritis. Urinalysis, CT Noncon, disposition and treatment pending results of UA and imaging. 12 05: Patient presented with an acute distress evidence of UTI. Incidental renal cyst as well as pulmonary nodule. Discussed findings with patient. He will follow-up with his urologist. HPI General Date/Time Provider Initiated Documentation: 02/01/22 09:09. HPI Narrative: 76-year-old male history of recurrent UTIs, presents with flank pain and dysuria and urinary frequency over the past several days. Follows with the urologist and has been on antibiotics approximately twice a year over the past couple of years for UTIs. Denies history of kidney stones. Related Data Home Medications Medication Instructions Recorded Confirmed omeprazole 20 mg capsule,delayed 20 mg PO DAILY 12/07/18 11/21/20 release ezetimibe 10 mg tablet 10 mg PO DAILY 03/15/19 11/21/20 citalopram 10 mg tablet 10 mg PO DAILY 11/21/20 finasteride 5 mg tablet 5 mg PO DAILY 11/21/20 11/21/20 losartan 25 mg tablet 25 mg PO DAILY 11/21/20 ibuprofen 800 mg tablet 800 mg PO TID PRN #14 tabs 11/27/20 Previous Rx's Medication Instructions Recorded ibuprofen 800 mg tablet 800 mg PO TID PRN #14 tabs 11/27/20 Allergies Allergy/AdvReac Type Severity Reaction Status Date / Time Saksfgd-RDD-HlP Reductase AdvReac Mild altered Unverified 11/21/20 14:50 Inhibitor labs [Rsdmbiy-Rnz-Dvq Reductase Inhibitor] Penicillins AdvReac Unknown as an Unverified 11/21/20 14:50 infant General Stated Complaint: Urinary ROBEL: 3 Review of Systems Narrative: Review of Systems Constitutional: negative Eyes: negative ENT: negative Cardiovascular: negative Respiratory: negative Gastrointestinal: negative : Dysuria, flank pain Musculoskeletal: negative Skin: negative Neurologic: negative Psych: negative PFSH All Active Problems (Updated 02/01/22 @ 12:06 by Everardo Mcwilliams MD) Fall down stairs (Acute) Laceration of head (Acute) Encounter for removal of keren (Acute) Acute UTI (Acute) Kidney cysts (Acute) Pulmonary nodule (Acute) Hyperlipidemia (Acute) GERD (gastroesophageal reflux disease) (Chronic) Social History Smoking/Tobacco Use Status: Current-Occasional Tobacco Type: cigars Smoking risk assessment performed?: Yes Alcohol Intake: current Alcohol Intake frequency: a few times a month Drug use: Occasionally Substance use type: marijuana Do you feel safe at home: Yes Do you feel safe in your relationship?: Yes Exam Narrative Exam Narrative: Physical Examination General: alert, awake, cooperative, resting comfortably, no acute distress HEENT: normocephalic, atraumatic; PERRL, EOM intact, conjunctiva normal; no nasal discharge; moist mucous membranes, oral and pharyngeal mucosa normal, tolerating secretions Neck: supple, trachea midline; full ROM Chest: normal to inspection Respiratory: normal respiratory effort, speaking in full sentences, clear to auscultation, no wheezing, rales or rhonchi Cardiac: regular rate, regular rhythm, S1S2 intact, no murmurs rubs or gallops GI: abdomen soft, non-tender, non-distended; no palpable mass or hepatosplenomegaly Skin: no lesions, rashes or trauma appreciated Neuro: AAOx3, normal speech, moving all extremities Psych: Appropriate mood and affect Course Vital Signs Vital signs: Vital Signs Temperature 36.5 C 02/01/22 09:08 Pulse 75 02/01/22 09:08 Respiratory Rate 18 02/01/22 09:08 Blood Pressure 176/101 H 02/01/22 09:08 Pulse Oximetry 98 02/01/22 09:08 Temperature 36.5 C 02/01/22 09:08 Temperature Source Tympanic 02/01/22 09:08 Pulse 75 02/01/22 09:08 Respiratory Rate 18 02/01/22 09:08 Blood Pressure 176/101 H 02/01/22 09:08 Blood Pressure Position Sitting 02/01/22 09:08 Pulse Oximetry 98 02/01/22 09:08 Oxygen Delivery Method Room Air 02/01/22 09:08 Oxygen Flow Rate 0 02/01/22 09:08
[2022-02-01 09:39] VITALS: BP 139/80; PULSE 76; RESP 16; TEMP 36; O2SAT 96
[2022-02-01 09:42] LABS: Bilirubin Negative (Negative); Blood Moderate (Negative); Clarity Clear (Clear); Glucose Negative (Negative); Ketones Negative (Negative); Leukocyte Esterase Small (Negative); Nitrite Positive (Negative); Specific Gravity 1.025 (1.005-1.025); Urobilinogen 0.2 EU/dL (Up TO 0.2); pH 5.5 (5-8)
[2022-02-01 09:55] LABS: Bacteria Few HPF (Negative); C & S Indicated? Yes; Casts Negative LPF (Negative); Crystals Negative HPF (Negative); Epithelial Cells Few HPF (Negative); Mucus Negative (Negative); WBC 20-50 HPF (0-5)
[2022-02-01] MEDS: Cefpodoxime 200 MG TAB PO (10:29)
[2022-02-01 10:30] VITALS: BP 153/86; PULSE 63; RESP 14; TEMP 36.2; O2SAT 97
--- NOTE | 2022-02-01 10:43 | DI.CT_ITS ---
Exam(s) CT ABDOMEN PELVIS WO EXAM: CT ABDOMEN PELVIS WO CLINICAL HISTORY: flanki pain, hematuria; recurrent utis. TECHNIQUE: Imaging Protocol: Axial computed tomography images with coronal and sagittal reformatted images were created and reviewed CONTRAST MATERIAL: Intravenous: none Oral: None COMPARISON: No exams were available for comparison FINDINGS: VISUALIZED LUNG BASES: Most image of this study reveals a 3 millimeter noncalcified nodule in the juan gular segment of the left lung. There are no pleural effusions. ABDOMEN: There is no ascites. LIVER: There are no obvious focal hepatic lesions evident of this noninfused study. GALLBLADDER/BILIARY: No obvious gallbladder pathology. CBD is not dilated. PANCREAS: No evidence of pancreatic mass nor dilatation of the pancreatic duct. SPLEEN: Spleen is not enlarged. No obvious intrasplenic lesions. ADRENALS: There are no significant adrenal masses. KIDNEYS:There is a 3.2 x 3.5 cm cyst in the lateral cortex of the left kidney. No solid renal masses . No calculi nor hydronephrosis.. There is subtle streaking around the right kidney superior pole. Ureters are not dilated. Urinary bladder wall is uniformly thickened. ABDOMINAL AORTA: Abdominal aorta is not enlarged. Retroaortic renal vein is noted. LYMPH NODES: There is no retroperitoneal nor paraaortic adenopathy. ABDOMINAL WALL: No evidence of significant anterior abdominal wall nor inguinal hernia. GI: There is no evidence of bowel obstruction, free air, nor abscess. PELVIS: LYMPH NODES: There is no intrapelvic nor inguinal adenopathy. GI: No evidence of appendicitis.There diverticuli in the upper sigmoid. No obvious acute diverticuli tis. No free fluid. URINARY BLADDER: Somewhat contracted. Diffuse thickening of the bladder wall noted. REPRODUCTIVE: Slightly prominent prostate gland. OSSEOUS: Multilevel chronic degenerative disc disease and laminectomies in the lumbar spine noted. N o fractures. No lytic osseous lesions evident. IMPRESSION: 1. Mild streaking around the right kidney, possibly related to inflammatory changes. No calculi nor hydronephrosis. 3.5 cm cyst in the opposite-left kidney. 2. Urinary bladder wall is uniformly thickened. 3. Upper sigmoid diverticuli. No obvious acute diverticulitis. 3 millimeter left lower lobe lung nodule. Appropriate follow-up recommended Findings called by myself to ER physician RADIATION DOSE DELIVERED: 1,264.63mGy.cm Total DLP DATA REPOSITORY: All CT scans at this facility are submitted to the National Radiology Data Registry (NRDR) Dose Index Registry (DIR) with the [employer] (ACR). RADIATION OPTIMIZATION: All CT scans at this facility use at least one of these dose optimization te chniques: automated exposure control; mA and/or kV adjustment per patient size (includes targeted exa ms where dose is matched to clinical indication); or iterative reconstruction.
[2022-02-01 12:06] VITALS: BP 149/77; PULSE 62; RESP 14; TEMP 36.1; O2SAT 96
[2022-02-01 12:19] VITALS: BP 149/77; PULSE 62; RESP 14; TEMP 36.1; O2SAT 96
== END 2022-02-01 12:17 | disposition home or self-care (01) ==
PROVIDERS: Emergency Provider Emergency Medicine
DX: N39.0 Urinary tract infection, site not specified (principal); N28.1 Cyst of kidney, acquired; R91.1 Solitary pulmonary nodule; F17.290 Nicotine dependence, other tobacco product, uncomplicated
CPT/HCPCS: 87077; 99284; 74176; 81003; 81015; 87086; 87186